=== PATIENT | female | born 1940 | race Native Hawaiian/Other Pacific Islander ===

== ENCOUNTER 2017-11-04 07:38 | Outpatient (CLI) | payer OTHER ==
[~2017-11-04] VITALS: Ht 162.6 cm; Wt 68.5 kg
== END 2017-11-04 22:19 | disposition home or self-care (01) ==
LOC: NM 07:38
DX: R07.89 Other chest pain (principal); I65.23 Occlusion and stenosis of bilateral carotid arteries; I35.2 Nonrheumatic aortic (valve) stenosis with insufficiency; I34.0 Nonrheumatic mitral (valve) insufficiency; I36.1 Nonrheumatic tricuspid (valve) insufficiency; E78.2 Mixed hyperlipidemia; Z86.73 Personal history of transient ischemic attack (TIA), and cerebral infarction without residual deficits; I10 Essential (primary) hypertension; R01.2 Other cardiac sounds
CPT/HCPCS: A9500; J2785

== ENCOUNTER 2017-11-24 15:37 | Outpatient (CLI) | payer OTHER | END 2017-11-24 20:03 | disposition home or self-care (01) | LOC: RAD 15:37 | DX: R06.02 Shortness of breath (principal); R06.09 Other forms of dyspnea ==

== ENCOUNTER 2019-11-02 08:17 | Outpatient (CLI) | payer OTHER ==
[~2019-11-02] VITALS: Ht 162.6 cm; Wt 67.6 kg
== END 2019-11-02 19:18 | disposition home or self-care (01) ==
LOC: NM 08:17
DX: R07.89 Other chest pain (principal); I25.10 Atherosclerotic heart disease of native coronary artery without angina pectoris
CPT/HCPCS: A9500; J2785

== ENCOUNTER 2020-01-25 13:44 | Outpatient (CLI) | payer OTHER ==
[2020-01-25 14:13] LABS: POTASSIUM 4.8 mmol/L (3.6-5.2)
[2020-01-25 14:14] LABS: PLATELET COUNT 189 K/uL (152-353)
== END 2020-01-25 22:31 | disposition home or self-care (01) ==
LOC: LABW 13:44
PROVIDERS: ATTEND Specialist
DX: Z01.810 Encounter for preprocedural cardiovascular examination (principal); R94.39 Abnormal result of other cardiovascular function study
CPT/HCPCS: 36415; 80053; 85027

== ENCOUNTER 2020-11-20 10:11 | Outpatient (CLI) | payer OTHER ==
[2020-11-20 10:32] LABS: POTASSIUM 3.9 mmol/L (3.6-5.2)
== END 2020-11-20 20:02 | disposition home or self-care (01) ==
LOC: LABW 10:11
PROVIDERS: ATTEND Nurse Practitioner Adult Health
DX: E87.5 Hyperkalemia (principal)
CPT/HCPCS: 36415; 80048

== ENCOUNTER 2020-12-27 11:22 | Outpatient (CLI) | payer OTHER ==
[2020-12-27 11:51] LABS: POTASSIUM 3.8 mmol/L (3.6-5.2)
== END 2020-12-27 22:37 | disposition home or self-care (01) ==
LOC: LABW 11:22
PROVIDERS: ATTEND Nurse Practitioner Adult Health
DX: R35.89 Other polyuria (principal); Z79.899 Other long term (current) drug therapy
CPT/HCPCS: 36415; 80048

== ENCOUNTER 2021-02-13 11:35 | Outpatient (CLI) | payer OTHER ==
[2021-02-13 11:56] LABS: POTASSIUM 3.8 mmol/L (3.6-5.2)
== END 2021-02-13 18:52 | disposition home or self-care (01) ==
LOC: LABW 11:35
PROVIDERS: ATTEND Nurse Practitioner Adult Health
DX: R35.89 Other polyuria (principal); Z79.899 Other long term (current) drug therapy
CPT/HCPCS: 36415; 80048

== ENCOUNTER 2021-04-06 11:57 | Outpatient (CLI) | payer OTHER ==
[2021-04-06 12:38] LABS: POTASSIUM 2.8 mmol/L (3.6-5.2)
== END 2021-04-06 19:59 | disposition home or self-care (01) ==
LOC: LABW 11:57
PROVIDERS: ATTEND Specialist
DX: I10 Essential (primary) hypertension (principal); I25.10 Atherosclerotic heart disease of native coronary artery without angina pectoris
CPT/HCPCS: 36415; 80048

== ENCOUNTER 2021-07-25 13:09 | Outpatient (CLI) | payer OTHER ==
[2021-07-25 13:31] LABS: POTASSIUM 3.7 mmol/L (3.6-5.2)
[2021-07-25 13:39] LABS: PLATELET COUNT 227 K/uL (152-353)
== END 2021-07-25 19:15 | disposition home or self-care (01) ==
LOC: LABW 13:09
PROVIDERS: ATTEND Specialist
DX: I20.0 Unstable angina (principal); R06.02 Shortness of breath; R07.89 Other chest pain
CPT/HCPCS: 36415; 80048; 85027

== ENCOUNTER 2021-09-05 10:39 | Outpatient (CLI) | payer OTHER ==
[2021-09-05 11:21] LABS: PLATELET COUNT 170 K/uL (152-353)
[2021-09-05 11:44] LABS: POTASSIUM 3.7 mmol/L (3.6-5.2)
== END 2021-09-05 18:54 | disposition home or self-care (01) ==
LOC: LABW 10:39
PROVIDERS: ATTEND Internal Medicine
DX: N18.32 Chronic kidney disease, stage 3b (principal); R53.83 Other fatigue; Z79.899 Other long term (current) drug therapy; E53.8 Deficiency of other specified B group vitamins; R79.89 Other specified abnormal findings of blood chemistry
CPT/HCPCS: 36415; 80053; 81002; 82306; 82330; 82570; 82607; 82728; 82746; 83036; 83540; 83550; 83735; 83970; 84100; 84156; 84439; 84443; 85027; 85652; 86038

== ENCOUNTER 2022-02-01 10:38 | Outpatient (CLI) | payer OTHER ==
[2022-02-01 11:03] LABS: PLATELET COUNT 217 K/uL (152-353)
[2022-02-01 11:40] LABS: POTASSIUM 3.6 mmol/L (3.6-5.2)
== END 2022-02-01 19:03 | disposition home or self-care (01) ==
LOC: LABW 10:38
PROVIDERS: ATTEND Internal Medicine
DX: N18.31 Chronic kidney disease, stage 3a (principal); R53.83 Other fatigue; Z79.899 Other long term (current) drug therapy; E53.8 Deficiency of other specified B group vitamins; R79.89 Other specified abnormal findings of blood chemistry
CPT/HCPCS: 36415; 80053; 81002; 82043; 82306; 82330; 82570; 82607; 82728; 82746; 83036; 83540; 83550; 83735; 83970; 84100; 84156; 84439; 84443; 85027; 85652; 86038

== ENCOUNTER 2022-06-06 09:44 | Outpatient (CLI) | payer OTHER ==
[2022-06-06 10:31] LABS: PLATELET COUNT 250 K/uL (152-353)
[2022-06-06 11:09] LABS: POTASSIUM 2.6 mmol/L (3.6-5.2)
== END 2022-06-06 20:49 | disposition home or self-care (01) ==
LOC: LABW 09:44
PROVIDERS: ATTEND Internal Medicine
DX: N18.31 Chronic kidney disease, stage 3a (principal); R53.83 Other fatigue; Z79.899 Other long term (current) drug therapy; E53.8 Deficiency of other specified B group vitamins
CPT/HCPCS: 36415; 80053; 81002; 82043; 82306; 82330; 82570; 82607; 82728; 82746; 83036; 83540; 83550; 83735; 83970; 84100; 84156; 84439; 84443; 85027; 85652; 86038